=== PATIENT | female | born 1950 | race Caucasian/White ===

== ENCOUNTER 2019-06-21 08:54 | Outpatient (CLI) | payer OTHER, SELFPAY ==
[2019-06-21 10:10] LABS: Hemoglobin A1C 6.7 % (<5.7); Potassium 4.1 mmol/L (3.4-5.0)
[2019-06-21 10:15] LABS: Alanine Aminotransferase 16 U/L (4-35); Albumin Level 4.2 g/dL (3.5-5.1); Alkaline Phosphatase 83 U/L (38-126); Aspartate Amino Transferase 21 U/L (14-36); Bilirubin,Total 0.2 mg/dL (0.2-1.3); Blood Urea Nitrogen 21 mg/dL (7-17); Calcium 8.7 mg/dL (8.4-10.2); Carbon Dioxide 24 mmol/L (22-30); Chloride 105 mmol/L (98-107); Estimated Glomerular Filt Rate > 60; Glucose 131 mg/dL (65-105); Sodium 138 mmol/L (137-145)
== END 2019-06-21 08:55 | disposition home or self-care (01) ==
PROVIDERS: PCP Family Medicine; Visit Provider Family Medicine
DX: E11.9 Type 2 diabetes mellitus without complications (principal); E78.5 Hyperlipidemia, unspecified
CPT/HCPCS: 36415; 80053; 83036

== ENCOUNTER 2019-07-07 14:41 | Outpatient (CLI) | payer OTHER, SELFPAY ==
[2019-07-07 15:16] LABS: Alanine Aminotransferase 19 U/L (4-35); Albumin Level 4.2 g/dL (3.5-5.1); Alkaline Phosphatase 69 U/L (38-126); Aspartate Amino Transferase 25 U/L (14-36); Bilirubin,Total 0.4 mg/dL (0.2-1.3); Blood Urea Nitrogen 17 mg/dL (7-17); Calcium 8.4 mg/dL (8.4-10.2); Carbon Dioxide 25 mmol/L (22-30); Chloride 103 mmol/L (98-107); Estimated Glomerular Filt Rate > 60; Glucose 145 mg/dL (65-105); Potassium 4.3 mmol/L (3.4-5.0); Sodium 137 mmol/L (137-145)
== END 2019-07-07 14:42 | disposition home or self-care (01) ==
PROVIDERS: PCP Family Medicine; Visit Provider Family Medicine
DX: B35.1 Tinea unguium (principal)
CPT/HCPCS: 36415; 80053

== ENCOUNTER 2019-11-24 10:20 | Outpatient (CLI) | payer OTHER, SELFPAY ==
[2019-11-24 10:44] LABS: Hematocrit 39.2 % (37.0-47.0); Hemoglobin 13.2 g/dL (12.0-15.0); Mean Corpuscular HGB Conc 33.7 g/dl (32-36); Mean Corpuscular Hemoglobin 29.9 pg (26-34); Mean Corpuscular Volume 88.7 fl (80-100); Mean Platelet Volume 10.7 fl (7.4-10.4); Platelet Count Result 222 k/mm3 (150-375); Red Blood Count 4.42 M/mm3 (4.2-5.4); Red Cell Distribution Width 12.3 % (11.5-14.5); White Blood Count 7.2 K/mm3 (4.5-10.0)
[2019-11-24 11:07] LABS: Alanine Aminotransferase 16 U/L (4-35); Albumin Level 4.3 g/dL (3.5-5.1); Alkaline Phosphatase 74 U/L (38-126); Anion Gap 10 mmol/L (8-16); Aspartate Amino Transferase 23 U/L (14-36); Bilirubin,Total 0.3 mg/dL (0.2-1.3); Blood Urea Nitrogen 18 mg/dL (7-17); Calcium 8.8 mg/dL (8.4-10.2); Carbon Dioxide 24 mmol/L (22-30); Chloride 105 mmol/L (98-107); Cholesterol 179 mg/dL (0-200); Estimated Glomerular Filt Rate 55; Glucose 129 mg/dL (65-105); HDL Direct 45 mg/dL; Potassium 4.5 mmol/L (3.4-5.0); Sodium 139 mmol/L (137-145); Triglycerides 158 mg/dL (<150)
[2019-11-24 11:18] LABS: LDL Cholesterol Direct 99 mg/dL
[2019-11-24 12:18] LABS: Hemoglobin A1C 6.2 % (<5.7)
[2019-11-24 12:49] LABS: Thyroid Stimulating Hormone Reflex 0.877 uIU/mL (0.465-4.68)
== END 2019-11-24 10:21 | disposition home or self-care (01) ==
LOC: ANHLAB 10:23
PROVIDERS: PCP Nurse Practitioner Family; Visit Provider Nurse Practitioner Family
DX: I10 Essential (primary) hypertension (principal); E78.5 Hyperlipidemia, unspecified; E11.9 Type 2 diabetes mellitus without complications
CPT/HCPCS: 36415; 80053; 80061; 83036; 84443; 85027

== ENCOUNTER 2019-12-26 08:58 | Outpatient (CLI) | payer OTHER, SELFPAY ==
--- NOTE | ~2019-12-26 | DEXA_ITS ---
Bone Density Report Name: Radha Norman Age: 69 Sex: Female Ethnicity: White Date of : 1950 Indication: postmenopausal; height loss; Referring Provider: Yasmin Dean Study: Bone densitometry was performed. Exam Date: December 26, 2019 Accession number: [id number] Bone Density: Region BMD T-score Z-score Classification AP Spine (L1, L2, L3) 1.075 0.5 2.6 Normal Femoral Neck (Left) 0.778 -0.6 1.2 Normal Total Hip (Left) 0.989 0.4 1.9 Normal Total Hip Bilateral Avg 0.983 0.4 1.9 Normal Femoral Neck (Right) 0.759 -0.8 1.0 Normal Total Hip (Right) 0.976 0.3 1.8 Normal World Health Organization criteria for BMD impression classify patients as: Normal (T-score at or above -1.0), Osteopenia (T-score between -1.0 and -2.5), or Osteoporosis (T-score at or below -2.5). 10-year Fracture Risk: FRAX not reported because: All T-scores for Spine Total, Hip Total, Femoral Neck at or above -1.0 Previous Exams: Region Exam Age BMD T-score BMD Change BMD Change Date g/cm2 vs Baseline vs Previous AP Spine(L1, L2, L3) 12/26/2019 69 1.075 0.5 0.030(2.9%)* 0.030(2.9%)* 06/03/2017 66 1.045 0.2 Total Hip(Left) 12/26/2019 69 0.989 0.4 -0.054(-5.2%)* -0.054(-5.2%)* 06/03/2017 66 1.043 0.8 Total Hip(Right) 12/26/2019 69 0.976 0.3 -0.036(-3.6%)* -0.036(-3.6%)* 06/03/2017 66 1.013 0.6 *Denotes significance at 95% confidence level, LSC for AP Spine = 0.022 g/cm2, LSC for Total Hip = 0.027 g/cm2 Clinical Information Provided by Patient: Patient maximum height was 67 Menopause Age: 53 Drinks caffeinated beverages Onset of menses at age 12 Number of children 3 Impression: The patient has normal bone mass. The BMD for the Total Hip(Left) decreased, changing by -5.2% since the last DXA exam. The BMD for the Total Hip(Right) decreased, changing by -3.6% since the last DXA exam. Discussion: BONE DENSITY IS ABOVE THE MINIMUM DESIRABLE LEVEL AT ALL SKELETAL SITES TESTED. This patient?s bone mineral density is above the minimum desirable level (T-score -1.0 or better) at all sites measured. The patient should follow a healthful lifestyle (good nutrition with adequate calcium and vitamin D, and appropriate weight-bearing exercise). Follow-Up: Consider repeating this study in 3 to 4 years to reassess this patient's status, or sooner if there is some new clinical indication. Reported by: [facility] on 12/26/2019 9:23:00 AM.
== END 2019-12-26 08:59 | disposition home or self-care (01) ==
LOC: ANHIMG 08:59
PROVIDERS: PCP Nurse Practitioner Family; Visit Provider Nurse Practitioner Family
DX: Z78.0 Asymptomatic menopausal state (principal)
CPT/HCPCS: 77080

== ENCOUNTER 2020-08-07 10:07 | Outpatient (CLI) | payer OTHER, SELFPAY ==
[2020-08-07 10:49] LABS: Hematocrit 38.2 % (37.0-47.0); Hemoglobin 12.7 g/dL (12.0-15.0); Mean Corpuscular HGB Conc 33.2 g/dl (32-36); Mean Corpuscular Hemoglobin 29.3 pg (26-34); Mean Platelet Volume 10.7 fl (7.4-10.4); Platelet Count Result 233 k/mm3 (150-375); Red Blood Count 4.34 M/mm3 (4.2-5.4); Red Cell Distribution Width 12.1 % (11.5-14.5); White Blood Count 7.5 K/mm3 (4.5-10.0)
[2020-08-07 10:59] LABS: Alanine Aminotransferase 15 U/L (4-35); Albumin Level 4.2 g/dL (3.5-5.1); Alkaline Phosphatase 81 U/L (38-126); Anion Gap 6 mmol/L (8-16); Aspartate Amino Transferase 21 U/L (14-36); Bilirubin,Total 0.2 mg/dL (0.2-1.3); Blood Urea Nitrogen 19 mg/dL (7-17); Calcium 9.1 mg/dL (8.4-10.2); Carbon Dioxide 26 mmol/L (22-30); Chloride 106 mmol/L (98-107); Cholesterol 189 mg/dL (0-200); Estimated Glomerular Filt Rate 55; Glucose 126 mg/dL (65-105); HDL Direct 51 mg/dL; Potassium 4.3 mmol/L (3.4-5.0); Sodium 138 mmol/L (137-145); Triglycerides 168 mg/dL (<150)
[2020-08-07 11:10] LABS: LDL Cholesterol Direct 104 mg/dL
== END 2020-08-07 10:08 | disposition home or self-care (01) ==
PROVIDERS: PCP Family Medicine; Visit Provider Nurse Practitioner Family
DX: E11.9 Type 2 diabetes mellitus without complications (principal); I10 Essential (primary) hypertension; E78.5 Hyperlipidemia, unspecified
CPT/HCPCS: 36415; 80053; 80061; 83036; 85027

== ENCOUNTER 2020-08-24 09:08 | Outpatient (CLI) | payer OTHER, SELFPAY ==
--- NOTE | ~2020-08-24 | MM_ITS ---
EXAMINATION: MM screening shayne BI w eddie HISTORY: Screening TECHNIQUE: Craniocaudal and mediolateral oblique 3-D tomosynthesis images were obtained and synthetic 2-D images were generated. CAD analysis was submitted and interpreted. COMPARISON: Comparison to multiple prior studies sequentially, with oldest reviewed study dated 04/22. BREAST PARENCHYMAL COMPOSITION: There are scattered areas of fibroglandular density. FINDINGS: There is no evidence of suspicious mass, calcification, or architectural distortion to sugg est malignancy in either breast. There has been no suspicious interval change. IMPRESSION: 1. No mammographic evidence of malignancy. 2. Recommend routine screening mammography in one year. BI-RADS Category 1: Negative Reviewed, dictated and finalized at location A.
== END 2020-08-24 09:09 | disposition home or self-care (01) ==
LOC: ANHIMG 09:09
PROVIDERS: PCP Family Medicine; Visit Provider Nurse Practitioner Family
DX: Z12.31 Encounter for screening mammogram for malignant neoplasm of breast (principal)
CPT/HCPCS: 77063; 77067

== ENCOUNTER 2020-09-06 14:05 | Outpatient (CLI) | payer OTHER, SELFPAY ==
--- NOTE | ~2020-09-06 | CT_ITS ---
EXAMINATION:CT lung screening DATE: 09/06/2020 14:42 INDICATION: Personal history of tobacco dependence. Smoker who quit 8 years ago with 51 pack year his tory. TECHNIQUE: Computed tomography (CT) of the chest was performed without intravenous contrast. Automate d exposure control and iterative reconstruction technique were employed. The dose-length product (DLP ) was 95.79 mGy-cm. COMPARISON: None. FINDINGS: There is mild emphysema. There is mild scarring at the lung apices. In the right lung lower lobe, there is mild peripheral atelectasis and scarring and honeycombing. There are a few scattered nodules in the lungs measuring up to 7 mm in superior segment right lower lobe. No pleural effusion. The heart size is normal. There are coronary artery calcifications. No pericardial effusion. There is mild thoracic spondylosis. IMPRESSION: 1. Lung-RADS category 3: Probably benign. Further evaluation is recommended with noncontrast low-dose chest CT in 6 months. Reviewed, dictated and finalized at location A. IMPRESSION: 1. Lung-RADS category 3: Probably benign. Further evaluation is recommended wit h noncontrast low-dose chest CT in 6 months.
== END 2020-09-06 14:06 | disposition home or self-care (01) ==
PROVIDERS: PCP Family Medicine; Visit Provider Family Medicine
DX: Z87.891 Personal history of nicotine dependence (principal)
CPT/HCPCS: 71271

== ENCOUNTER 2021-03-03 10:06 | Outpatient (CLI) | payer OTHER, SELFPAY ==
[2021-03-03 10:31] LABS: Basophils Absolute Auto 0.1 K/mm3 (0.0-0.1); Basophils Percent Auto 0.8 % (0.2-1.2); Eosinophils Absolute Auto 0.7 K/mm3 (0-0.3); Eosinophils Percent Auto 8.5 % (0-4.4); Hematocrit 39.7 % (37.0-47.0); Immature Granulocyte Absolute 0.03 K/mm3 (0.00-0.031); Immature Granulocyte Percent A 0.4 % (0-0.5); Lymphocytes Absolute Auto 2.52 K/mm3 (0.9-3.2); Lymphocytes Percent Auto 30.2 % (18.3-44.2); Mean Corpuscular HGB Conc 32.7 g/dl (32-36); Mean Corpuscular Volume 91.5 fl (80-100); Mean Platelet Volume 10.7 fl (7.4-10.4); Monocytes Absolute Auto 0.7 K/mm3 (0.1-0.6); Monocytes Percent Auto 8.9 % (2.6-8.5); Neutrophils Absolute Auto 4.3 K/mm3 (1.3-6.7); Neutrophils Percent Auto 51.2 % (45.5-73.1); Platelet Count Result 208 k/mm3 (150-375); Red Blood Count 4.34 M/mm3 (4.2-5.4); Red Cell Distribution Width 12.3 % (11.5-14.5); White Blood Count 8.4 K/mm3 (4.5-10.0)
[2021-03-03 10:38] LABS: Hemoglobin A1C 5.9 % (<5.7)
[2021-03-03 10:40] LABS: Alanine Aminotransferase 13 U/L (4-35); Albumin Level 4.2 g/dL (3.5-5.1); Alkaline Phosphatase 86 U/L (38-126); Anion Gap 6 mmol/L (8-16); Aspartate Amino Transferase 20 U/L (14-36); Bilirubin,Total 0.3 mg/dL (0.2-1.3); Blood Urea Nitrogen 20 mg/dL (7-17); Carbon Dioxide 26 mmol/L (22-30); Chloride 103 mmol/L (98-107); Cholesterol 203 mg/dL (0-200); Estimated Glomerular Filt Rate > 60; Glucose 121 mg/dL (65-110); HDL Direct 50 mg/dL; Potassium 4.4 mmol/L (3.4-5.0); Sodium 135 mmol/L (137-145); Triglycerides 156 mg/dL (<150)
[2021-03-03 10:50] LABS: LDL Cholesterol Direct 122 mg/dL
== END 2021-03-03 10:07 | disposition home or self-care (01) ==
LOC: ANHLAB 10:09
PROVIDERS: PCP Family Medicine; Visit Provider Nurse Practitioner Family
DX: E11.9 Type 2 diabetes mellitus without complications (principal); E78.5 Hyperlipidemia, unspecified; I10 Essential (primary) hypertension
CPT/HCPCS: 36415; 80053; 80061; 83036; 85025

== ENCOUNTER 2021-06-05 08:06 | Outpatient (CLI) | payer OTHER, SELFPAY ==
--- NOTE | ~2021-06-05 | CT_ITS ---
EXAMINATION: CT lung screening EXAM DATE: 06/05/2021 08:35 INDICATION: Z87.891 - Personal history of nicotine dependence. TECHNIQUE: Spiral low dose CT of the chest without contrast. Axial, coronal and sagittal images were reviewed. The dose-length product (DLP) for this examination was 101.10 mGy-cm. The exposure was t ailored according to patient size (auto mA exposure control), and iterative reconstruction (ASIR) was used as additional dose reduction technique. Comparison is made to prior examination from 09/06/2020. FINDINGS: Scattered regions of opacities consistent with postinfectious residua. These are unchanged compared to prior study. Previously reported 7 mm opacity demonstrated superior segment right lower lobe, unchanged. No new or suspicious pulmonary nodules. There is mild to moderate emphysema. Trache obronchial tree is patent. There is no mediastinal, hilar or axillary lymphadenopathy. There are no pleural or pericardial effusions. There is no pneumothorax. Heart normal in size. There is m ild to moderate coronary arterial calcification, arterial sclerosis. Upper abdomen is unremarkable. There is mild thoracic spondylosis without osteoblastic or osteolytic lesions identified. IMPRESSION: Lung-RADS category 2, benign appearance or behavior (<1% chance of malignancy); recommend continued LDCT screening in 1 year. Reviewed, dictated and finalized at location A. NARY DIRECTOR
== END 2021-06-05 08:07 | disposition home or self-care (01) ==
PROVIDERS: PCP Family Medicine; Visit Provider Nurse Practitioner Family
DX: Z12.2 Encounter for screening for malignant neoplasm of respiratory organs (principal); Z87.891 Personal history of nicotine dependence; R91.8 Other nonspecific abnormal finding of lung field
CPT/HCPCS: 71271

== ENCOUNTER 2021-09-01 10:25 | Outpatient (CLI) | payer OTHER, SELFPAY ==
[2021-09-01 11:15] LABS: Basophils Absolute Auto 0.1 K/mm3 (0.0-0.1); Eosinophils Absolute Auto 0.5 K/mm3 (0-0.3); Eosinophils Percent Auto 7.7 % (0-4.4); Hematocrit 39.7 % (37.0-47.0); Hemoglobin 12.8 g/dL (12.0-15.0); Immature Granulocyte Absolute 0.02 K/mm3 (0.00-0.031); Immature Granulocyte Percent A 0.3 % (0-0.5); Lymphocytes Absolute Auto 1.93 K/mm3 (0.9-3.2); Lymphocytes Percent Auto 27.5 % (18.3-44.2); Mean Corpuscular HGB Conc 32.2 g/dl (32-36); Mean Corpuscular Hemoglobin 28.9 pg (26-34); Mean Corpuscular Volume 89.6 fl (80-100); Mean Platelet Volume 11.1 fl (7.4-10.4); Monocytes Absolute Auto 0.7 K/mm3 (0.1-0.6); Monocytes Percent Auto 9.7 % (2.6-8.5); Neutrophils Absolute Auto 3.8 K/mm3 (1.3-6.7); Neutrophils Percent Auto 53.8 % (45.5-73.1); Platelet Count Result 217 k/mm3 (150-375); Red Blood Count 4.43 M/mm3 (4.2-5.4); Red Cell Distribution Width 12.3 % (11.5-14.5)
[2021-09-01 11:23] LABS: Alanine Aminotransferase 14 U/L (6-35); Albumin Level 4.3 g/dL (3.5-5.1); Alkaline Phosphatase 97 U/L (38-126); Anion Gap 8 mmol/L (8-16); Aspartate Amino Transferase 19 U/L (14-36); Bilirubin,Total 0.3 mg/dL (0.2-1.3); Blood Urea Nitrogen 16 mg/dL (7-17); Calcium 8.6 mg/dL (8.4-10.2); Carbon Dioxide 25 mmol/L (22-30); Chloride 106 mmol/L (98-107); Cholesterol 201 mg/dL (0-200); Estimated Glomerular Filt Rate > 60; Glucose 127 mg/dL (65-110); HDL Direct 46 mg/dL; Potassium 4.4 mmol/L (3.4-5.0); Sodium 139 mmol/L (137-145); Triglycerides 174 mg/dL (<150)
[2021-09-01 11:34] LABS: LDL Cholesterol Direct 108 mg/dL
[2021-09-01 11:43] LABS: Hemoglobin A1C 6.3 % (<5.7)
== END 2021-09-01 10:26 | disposition home or self-care (01) ==
PROVIDERS: PCP Family Medicine; Visit Provider Nurse Practitioner Family
DX: E78.5 Hyperlipidemia, unspecified (principal); E11.9 Type 2 diabetes mellitus without complications; I10 Essential (primary) hypertension
CPT/HCPCS: 36415; 80053; 80061; 83036; 85025

== ENCOUNTER 2022-04-13 10:19 | Outpatient (CLI) | payer OTHER, SELFPAY ==
[2022-04-13 11:00] LABS: Basophils Percent Auto 0.5 % (0.2-1.2); Eosinophils Absolute Auto 0.3 K/mm3 (0-0.3); Eosinophils Percent Auto 4.4 % (0-4.4); Hematocrit 39.5 % (37.0-47.0); Hemoglobin 12.9 g/dL (12.0-15.0); Immature Granulocyte Absolute 0.03 K/mm3 (0.00-0.031); Immature Granulocyte Percent A 0.4 % (0-0.5); Lymphocytes Absolute Auto 1.99 K/mm3 (0.9-3.2); Lymphocytes Percent Auto 25.5 % (18.3-44.2); Mean Corpuscular HGB Conc 32.7 g/dl (32-36); Mean Corpuscular Hemoglobin 29.8 pg (26-34); Mean Corpuscular Volume 91.2 fl (80-100); Mean Platelet Volume 10.8 fl (7.4-10.4); Monocytes Absolute Auto 0.7 K/mm3 (0.1-0.6); Monocytes Percent Auto 9.2 % (2.6-8.5); Neutrophils Absolute Auto 4.7 K/mm3 (1.3-6.7); Platelet Count Result 227 k/mm3 (150-375); Red Blood Count 4.33 M/mm3 (4.2-5.4); Red Cell Distribution Width 12.7 % (11.5-14.5); White Blood Count 7.8 K/mm3 (4.5-10.0)
[2022-04-13 11:13] LABS: Alanine Aminotransferase 15 U/L (6-35); Albumin Level 4.1 g/dL (3.5-5.1); Alkaline Phosphatase 82 U/L (38-126); Anion Gap 4 mmol/L (8-16); Aspartate Amino Transferase 18 U/L (14-36); Bilirubin,Total 0.2 mg/dL (0.2-1.3); Blood Urea Nitrogen 20 mg/dL (7-17); Calcium 8.7 mg/dL (8.4-10.2); Carbon Dioxide 27 mmol/L (22-30); Chloride 104 mmol/L (98-107); Cholesterol 195 mg/dL (0-200); Estimated Glomerular Filt Rate > 60; Glucose 134 mg/dL (65-110); HDL Direct 51 mg/dL; Potassium 4.1 mmol/L (3.4-5.0); Sodium 135 mmol/L (137-145); Triglycerides 163 mg/dL (<150)
[2022-04-13 11:24] LABS: LDL Cholesterol Direct 103 mg/dL
[2022-04-13 11:28] LABS: Creatinine Urine 129.2 mg/dL
[2022-04-13 11:33] LABS: MALB Creatinine Ratio 42.3 mg/g (0-30); Microalbumin Urine Random 54.7 mg/L (0-16.7)
[2022-04-13 11:33] LABS: Hemoglobin A1C 6.5 % (<5.7)
[2022-04-13 12:08] LABS: Vitamin D 25 Hydroxy 18.1 ng/mL
== END 2022-04-13 10:20 | disposition home or self-care (01) ==
PROVIDERS: PCP Family Medicine; Visit Provider Nurse Practitioner Family
DX: I10 Essential (primary) hypertension (principal); E11.9 Type 2 diabetes mellitus without complications; E78.5 Hyperlipidemia, unspecified; E55.9 Vitamin D deficiency, unspecified; Z78.0 Asymptomatic menopausal state
CPT/HCPCS: 36415; 80053; 80061; 82043; 82306; 83036; 84443; 85025

== ENCOUNTER 2022-05-01 01:54 | Day surgery (SDC) | payer OTHER, SELFPAY ==
[2022-04-15 13:33] VITALS: BMI 29.9
--- NOTE | 2022-04-30 09:55 | WPDANESEPPF ---
Anes - Initial Pre Proc Eval Procedure: Operation Date: 05/01/22 10:45 Proposed Procedures p Screening Colonoscopy - Chema Mohan MD Date/Time: 04/30/22 09:55 Surgeon: Chema Mohan MD Pre Op Diagnosis: neoplasm screening Patient Data Age: 71 Gender: F Height: 1.68 m Weight: 84 kg Allergies Allergy/AdvReac Type Severity Reaction Status Date / Time codeine Allergy Unknown Unknown Verified 05/05/22 15:22 shellfish derived Allergy Hives Verified 05/05/22 15:22 Home Medications Medication Instructions Recorded Confirmed Type aspirin 81 mg chewable tablet 81 mg PO DAILY 05/22/19 05/01/22 History ertlvkberkbv-Fb-fpcb-minerals 1 tablet PO DAILY 05/22/19 05/01/22 History nitroglycerin 0.4 mg sublingual 0.4 mg sublingual Q5M PRN Chest 05/22/19 04/15/22 History tablet Pain blood-glucose meter (Blood Glucose #1 ea 02/20/20 05/01/22 Rx Monitoring kit) blood sugar diagnostic (Contour See Rx Instructions .Route 05/28/20 05/01/22 Rx Next Test Strips) .COMPLEX #100 strips omega-3 417 mg-dha 120 mg-epa-276 2 cap PO DAILY 08/13/20 05/01/22 History mg-fish oil 600 mg-tumeric capsule vitamins A,C,M-ijab-hexjjm 2,148 1 tablet PO BID 03/04/21 05/01/22 History mcg-113 mg-45 mg-17.4 mg tablet (PreserVision AREDS) diclofenac sodium 1 % topical gel 2 g topical QID #100 grams 09/02/21 05/01/22 Rx triamcinolone acetonide 0.1 % 1 applic topical BID #30 grams 09/02/21 05/01/22 Rx topical cream lisinopril 10 mg tablet See Rx Instructions .Route 09/04/21 05/01/22 Rx .COMPLEX #180 tabs metformin 500 mg tablet 500 mg PO BID #180 tabs 12/15/21 05/01/22 Rx montelukast 10 mg tablet 10 mg PO DAILY #90 tabs 02/20/22 05/01/22 Rx (Singulair) amlodipine 5 mg tablet 5 mg PO DAILY 05/05/22 05/05/22 History carvedilol 12.5 mg tablet 12.5 mg PO BID #180 tabs 05/05/22 Rx methylprednisolone 4 mg tablets in See Rx Instructions PO PER PKG DIR 05/05/22 05/05/22 Rx a dose pack (Medrol (Taj)) #21 ea pravastatin 40 mg tablet 40 mg PO DAILY 05/05/22 05/05/22 History tramadol 50 mg tablet 50 mg PO Q6H PRN pain #10 tabs 05/05/22 05/05/22 Rx Patient hx anesthesia problems: none Family hx anesthesia problems: none Results Review: All pre-operative results and documents have been reviewed as part of the pre-operative evaluation. [facility] Past Medical History Medical History Arthralgia of both knees Atopic dermatitis Bilateral tinnitus Emphysema lung Former cigarette smoker Heart disease HLD (hyperlipidemia) Hypertension Left bundle branch block Macular degeneration Surgical History Surgical History History of tubal ligation Family History Family History Sibling Hypertension Family history of malignant neoplasm Grandparent Cerebrovascular accident Acute myocardial infarction Family history of malignant neoplasm Mother Cerebrovascular accident Father Acute myocardial infarction Social History Social History Smoking packs per day: 1 Smoking cigarettes per day: 20.0 Years smoked: 50 Smoking pack-years: 50.00 Smoking status: Former smoker Tobacco type: cigarettes Second hand tobacco smoke exposure: No Smoking end date: 01/30/13 Alcohol intake: current Drinks per week: 3 Alcohol use details: beer Substance use: never Substance use type: does not use Lack of Transportation: No Lack of Food: Never True Current Housing: I Have Housing Concerned About Future Housing: No Difficulty Paying Gas/Electric Bills: No Difficulty Paying for Meds: No Currently Unemployed: No Education: High School Diploma/GED Difficulty w/ Childcare or Family Care: No Living arrangements: with family Additional living arrangements comments: Occupation/[employer]
--- NOTE | 2022-04-30 15:19 | PM.HPGS ---
History of Present Illness History of Present Illness Consent: Risks, benefits, and alternatives have been discussed and questions answered. Patient agrees to proceed with procedure. Chief complaint: neoplasm screening Narrative: Radha Norman is a 71 year old female referred for colon cancer screening. Review of Systems Review of Systems: All systems reviewed & are unremarkable except as noted in HPI and below PMFSH Past Medical History Medical History Arthralgia of both knees Atopic dermatitis Bilateral tinnitus Emphysema lung Former cigarette smoker Heart disease HLD (hyperlipidemia) Hypertension Left bundle branch block Macular degeneration Surgical History Surgical History History of tubal ligation Family History Family History Sibling Hypertension Family history of malignant neoplasm Grandparent Cerebrovascular accident Acute myocardial infarction Family history of malignant neoplasm Mother Cerebrovascular accident Father Acute myocardial infarction Social History Social History Smoking packs per day: 1 Smoking cigarettes per day: 20.0 Years smoked: 50 Smoking pack-years: 50.00 Smoking status: Former smoker Tobacco type: cigarettes Second hand tobacco smoke exposure: No Smoking end date: 01/30/13 Alcohol intake: current Drinks per week: 3 Alcohol use details: beer Substance use: never Substance use type: does not use Lack of Transportation: No Lack of Food: Never True Current Housing: I Have Housing Concerned About Future Housing: No Difficulty Paying Gas/Electric Bills: No Difficulty Paying for Meds: No Currently Unemployed: No Education: High School Diploma/GED Difficulty w/ Childcare or Family Care: No Living arrangements: with family Additional living arrangements comments: Occupation/Education: retired Gender identity (if verbalized by the patient): Female Sexual Orientation (if Verbalized by the Patient): Straight or Heterosexual Spiritual care concerns: No Agree to blood products: Yes Meds Home Medications and Allergies Home Medications Medication Instructions Recorded Confirmed Type aspirin 81 mg chewable tablet 81 mg PO DAILY 05/22/19 05/01/22 History ihzquqyvqrop-Id-kvep-minerals 1 tablet PO DAILY 05/22/19 05/01/22 History nitroglycerin 0.4 mg sublingual 0.4 mg sublingual Q5M PRN Chest 05/22/19 04/15/22 History tablet Pain blood-glucose meter (Blood Glucose #1 ea 02/20/20 05/01/22 Rx Monitoring kit) blood sugar diagnostic (Contour See Rx Instructions .Route 05/28/20 05/01/22 Rx Next Test Strips) .COMPLEX #100 strips omega-3 417 mg-dha 120 mg-epa-276 2 cap PO DAILY 08/13/20 05/01/22 History mg-fish oil 600 mg-tumeric capsule vitamins A,C,J-otlu-zyiwdg 2,148 1 tablet PO BID 03/04/21 05/01/22 History mcg-113 mg-45 mg-17.4 mg tablet (PreserVision AREDS) diclofenac sodium 1 % topical gel 2 g topical QID #100 grams 09/02/21 05/01/22 Rx triamcinolone acetonide 0.1 % 1 applic topical BID #30 grams 09/02/21 05/01/22 Rx topical cream lisinopril 10 mg tablet See Rx Instructions .Route 09/04/21 05/01/22 Rx .COMPLEX #180 tabs carvedilol 12.5 mg tablet 12.5 mg PO BID #180 tabs 11/11/21 05/01/22 Rx metformin 500 mg tablet 500 mg PO BID #180 tabs 12/15/21 05/01/22 Rx amlodipine 5 mg tablet See Rx Instructions .Route 12/21/21 05/01/22 Rx .COMPLEX #90 tabs pravastatin 40 mg tablet See Rx Instructions .Route 12/21/21 05/01/22 Rx .COMPLEX #90 tabs montelukast 10 mg tablet 10 mg PO DAILY #90 tabs 02/20/22 05/01/22 Rx (Singulair) Allergies Allergy/AdvReac Type Severity Reaction Status Date / Time codeine Allergy Unknown Unknown Verified 05/01/22 09:50 shellfish derived Al
[2022-05-01 09:51] VITALS: BP 166/77; PULSE 73; RESP 20; TEMP 35.6; O2SAT 97; BMI 29.2
[2022-05-01] MEDS: LACTATED RINGERS 1,000 ML 150 ML IV CONT (10:11)
[2022-05-01 10:12] LABS: Glucose Point of Care 121 mg/dl (65-105)
[2022-05-01 10:54] VITALS: BP 132/54; PULSE 70; RESP 15; O2SAT 99
[2022-05-01 11:04] VITALS: BP 138/53; PULSE 72; RESP 18; O2SAT 100
[2022-05-01 11:14] VITALS: BP 140/55; PULSE 67; RESP 19; O2SAT 100
== END 2022-05-01 11:21 | disposition home or self-care (01) ==
PROVIDERS: PCP Family Medicine; Visit Provider Internal Medicine Gastroenterology
PROC: 0DJD8ZZ Inspection of Lower Intestinal Tract, Via Natural or Artificial Opening Endoscopic (ICD-10-PCS; CPT 45378; principal; 2022-05-01 10:45)
DX: Z12.11 Encounter for screening for malignant neoplasm of colon (principal); K62.1 Rectal polyp; I11.9 Hypertensive heart disease without heart failure; E78.5 Hyperlipidemia, unspecified; I44.7 Left bundle-branch block, unspecified; J43.9 Emphysema, unspecified; H35.30 Unspecified macular degeneration; Z79.82 Long term (current) use of aspirin; Z79.84 Long term (current) use of oral hypoglycemic drugs; Z87.891 Personal history of nicotine dependence
CPT/HCPCS: 45380; 82948; 88305; J2704; J7120

== ENCOUNTER 2022-05-14 14:34 | Outpatient (CLI) | payer OTHER, SELFPAY ==
--- NOTE | ~2022-05-14 | MM_ITS ---
EXAMINATION: MM screening shayne BI w eddie HISTORY: Screening mammogram TECHNIQUE: Craniocaudal and mediolateral oblique 3-D tomosynthesis images were obtained and synthetic 2-D images were generated. CAD analysis was submitted and interpreted. COMPARISON: 08/24/2020, 06/15/2018, 06/03/2017 lateral screening mammogram examinations BREAST PARENCHYMAL COMPOSITION: There are scattered areas of fibroglandular density. FINDINGS: There is no evidence of suspicious mass, calcification, or architectural distortion to sugg est malignancy in either breast. There has been no suspicious interval change. IMPRESSION: 1. No mammographic evidence of malignancy. 2. Recommend routine screening mammography in one year. BI-RADS Category 1: Negative Reviewed, dictated and finalized at location A. 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
--- NOTE | ~2022-05-14 | DEXA_ITS ---
Bone Density Report Name: SUNDAY MUÑOZ Age: 71 Sex: Female Ethnicity: White Date of : 1950 Indication: postmenopausal; screening for osteoporosis; height loss; asthma or emphysema; Referring Provider: CARI ARREDONDO Study: Bone densitometry was performed. Exam Date: May 14, 2022 Accession number: [id number] Bone Density: Region BMD T-score Z-score Classification AP Spine(L1-L4) 1.087 0.4 2.6 Normal Femoral Neck (Left) 0.774 -0.7 1.3 Normal Total Hip (Left) 0.961 0.2 1.8 Normal Femoral Neck (Right) 0.758 -0.8 1.1 Normal Total Hip (Right) 0.956 0.1 1.8 Normal Total Hip Mean 0.958 0.2 1.8 Normal World Health Organization criteria for BMD impression classify patients as: Normal (T-score at or above -1.0), Osteopenia (T-score between -1.0 and -2.5), or Osteoporosis (T-score at or below -2.5). 10-year Fracture Risk: FRAX not reported because: All T-scores for Spine Total, Hip Total, Femoral Neck at or above -1.0 Previous Exams: Region Exam Age BMD T-score BMD Change BMD Change Date g/cm2 vs Baseline vs Previous Total Hip(Left) 05/14/2022 71 0.961 0.2 -0.082 (-7.9%) -0.028 (-2.8%) 12/26/2019 69 0.989 0.4 -0.054 (-5.2%) -0.054 (-5.2%) 06/03/2017 66 1.043 0.8 Total Hip(Right) 05/14/2022 71 0.956 0.1 -0.057 (-5.6%) -0.020 (-2.1%) 12/26/2019 69 0.976 0.3 -0.036 (-3.6%) -0.036 (-3.6%) 06/03/2017 66 1.013 0.6 *Denotes significance at 95% confidence level, LSC for Total Hip = 0.027 g/cm2 Clinical Information Provided by Patient: Has used the following medications: Vitamin D, Calcium Has the following medical conditions: Asthma or Emphysema Patient maximum height was 66 Menopause Age: 53 No regular weight bearing exercise Drinks caffeinated beverages Onset of menses at age 12 Number of children 3 Impression: The patient has normal bone mass. The BMD for the Total Hip(Left) decreased, changing by -2.8% since the last DXA exam. Discussion: BONE DENSITY IS ABOVE THE MINIMUM DESIRABLE LEVEL AT ALL SKELETAL SITES TESTED. This patient?s bone mineral density is above the minimum desirable level (T-score -1.0 or better) at all sites measured. The patient should follow a healthful lifestyle (good nutrition with adequate calcium and vitamin D, and appropriate weight-bearing exercise). Follow-Up: Consider repeating this study in 3 to 4 years to reassess this patient's status, or sooner if there is some new clinical indication.
== END 2022-05-14 14:35 | disposition home or self-care (01) ==
PROVIDERS: PCP Family Medicine; Visit Provider Nurse Practitioner Family
DX: Z12.31 Encounter for screening mammogram for malignant neoplasm of breast (principal); Z78.0 Asymptomatic menopausal state
CPT/HCPCS: 77063; 77067; 77080

== ENCOUNTER 2022-09-17 09:58 | Outpatient (CLI) | payer OTHER, SELFPAY ==
[2022-09-17 10:20] LABS: Basophils Absolute Auto 0.1 K/mm3 (0.0-0.1); Basophils Percent Auto 0.8 % (0.2-1.2); Eosinophils Absolute Auto 0.5 K/mm3 (0-0.3); Eosinophils Percent Auto 6.5 % (0-4.4); Hematocrit 39.3 % (37.0-47.0); Hemoglobin 12.7 g/dL (12.0-15.0); Immature Granulocyte Absolute 0.02 K/mm3 (0.00-0.031); Immature Granulocyte Percent A 0.3 % (0-0.5); Lymphocytes Absolute Auto 2.67 K/mm3 (0.9-3.2); Lymphocytes Percent Auto 37.1 % (18.3-44.2); Mean Corpuscular HGB Conc 32.3 g/dl (32-36); Mean Corpuscular Hemoglobin 29.3 pg (26-34); Mean Corpuscular Volume 90.8 fl (80-100); Mean Platelet Volume 10.2 fl (7.4-10.4); Monocytes Absolute Auto 0.6 K/mm3 (0.1-0.6); Monocytes Percent Auto 8.5 % (2.6-8.5); Neutrophils Absolute Auto 3.4 K/mm3 (1.3-6.7); Neutrophils Percent Auto 46.8 % (45.5-73.1); Platelet Count Result 221 k/mm3 (150-375); Red Blood Count 4.33 M/mm3 (4.2-5.4); Red Cell Distribution Width 12.5 % (11.5-14.5); White Blood Count 7.2 K/mm3 (4.5-10.0)
[2022-09-17 12:41] LABS: Alanine Aminotransferase 19 U/L (6-35); Albumin Level 4.3 g/dL (3.5-5.1); Alkaline Phosphatase 81 U/L (38-126); Anion Gap 8 mmol/L (8-16); Aspartate Amino Transferase 22 U/L (14-36); Bilirubin,Total 0.3 mg/dL (0.2-1.3); Blood Urea Nitrogen 15 mg/dL (7-17); Calcium 8.5 mg/dL (8.4-10.2); Carbon Dioxide 26 mmol/L (22-30); Chloride 105 mmol/L (98-107); Cholesterol 196 mg/dL (0-200); Estimated Glomerular Filt Rate > 60; Glucose 113 mg/dL (65-110); HDL Direct 43 mg/dL; Potassium 4.2 mmol/L (3.4-5.0); Sodium 139 mmol/L (137-145); Triglycerides 281 mg/dL (<150)
[2022-09-17 12:52] LABS: LDL Cholesterol Direct 106 mg/dL
[2022-09-17 12:54] LABS: Hemoglobin A1C 6.1 % (<5.7)
[2022-09-17 12:59] LABS: Vitamin D 25 Hydroxy 23.2 ng/mL
== END 2022-09-17 09:59 | disposition home or self-care (01) ==
LOC: ANHLAB 10:00
PROVIDERS: PCP Family Medicine; Referring Provider Podiatrist Foot & Ankle Surgery; Visit Provider Nurse Practitioner Family
DX: I10 Essential (primary) hypertension (principal); E11.59 Type 2 diabetes mellitus with other circulatory complications; E55.9 Vitamin D deficiency, unspecified; Z13.29 Encounter for screening for other suspected endocrine disorder; Z13.220 Encounter for screening for lipoid disorders; B35.1 Tinea unguium
CPT/HCPCS: 36415; 80053; 80061; 82306; 83036; 84443; 85025

== ENCOUNTER 2022-11-20 17:14 | Emergency (ER) | payer OTHER, SELFPAY ==
[2022-11-20 17:24] VITALS: BP 155/75; PULSE 84; RESP 16; TEMP 37.2; O2SAT 99
--- NOTE | 2022-11-20 17:45 | ED.GENADULT ---
HPI - General Adult General Chief complaint: Wound/Laceration Stated complaint: Left Toe Nails Pain Time Seen by Provider: 11/20/22 17:40 Source: patient, RN notes reviewed and old records reviewed Mode of arrival: ambulatory Limitations: no limitations History of Present Illness HPI narrative: 72-year-old female who presents to [facility] with complaints redness and some swelling to the nail bed of the left great toe with concern for infection. Patient states she had the left great toe nail and also the 2nd toenail removed due to ingrown and fungus on the nails on with increased redness and soreness with swelling at base on nail bed left great toe noted today. Patient reports that she has been taking amoxicillin for dental infection since Wednesday. and patient states that she is diabetic. MD complaint: concern for infection left great toe nail bed Onset (ago): day(s) (1) Location: lower extremity (left great toe nail base) Severity scale (1-10): 2 Quality: other (soreness) Exacerbating factors: other (ambulation) Treatments prior to arrival: other (Tylenol and on Amoxicillin for dental infection) Related Data Home Medications Medication Instructions Recorded Confirmed aspirin 81 mg chewable tablet 81 mg PO DAILY 05/22/19 09/25/22 uyyzepkbfkih-My-yvob-minerals 1 tablet PO DAILY 05/22/19 09/25/22 vitamins A,C,F-jaba-xcsfre 2,148 1 tablet PO BID 03/04/21 09/25/22 mcg-113 mg-45 mg-17.4 mg tablet (PreserVision AREDS) lisinopril 10 mg tablet 10 mg PO BID 05/28/22 09/25/22 omega 5-adf-ajo-fish oil 1,000 mg 2 cap PO BID 09/25/22 09/25/22 (120 mg-180 mg) capsule (Fish Oil) amoxicillin 500 mg capsule mg 11/20/22 nitroglycerin 11/20/22 Allergies Allergy/AdvReac Type Severity Reaction Status Date / Time codeine Allergy Unknown Anxiety Verified 11/20/22 17:41 shellfish derived Allergy Hives Verified 09/03/22 12:42 Review of Systems Review of Systems: CONSTITUTIONAL: Denies fever, chills, or sweats. CARDIOVASCULAR: Denies chest pain, palpitations, or edema. RESPIRATORY: Denies cough or dyspnea. GASTROINTESTINAL: Denies abdominal pain, nausea, vomiting SKIN: Reports redness and swelling to left great toe at nail bed Denies purulent drainage, vesicles, bullae, numbness, pain beyond proportion MUSCULOSKELETAL: Denies myalgia. NEUROLOGIC: Denies headache, numbness. All systems reviewed & are unremarkable except as noted in HPI and below PMFSH Past Medical History Medical History Arthralgia of both knees Arthritis of right knee Atopic dermatitis Bilateral tinnitus Emphysema lung Former cigarette smoker Heart disease HLD (hyperlipidemia) Hypertension Left bundle branch block Macular degeneration Surgical History Surgical History History of tubal ligation Family History Family History Sibling Hypertension Family history of malignant neoplasm Grandparent Cerebrovascular accident Acute myocardial infarction Family history of malignant neoplasm Mother Cerebrovascular accident Father Acute myocardial infarction Social History Social History Smoking packs per day: 1 Smoking cigarettes per day: 20.0 Years smoked: 50 Smoking pack-years: 50.00 Smoking status: Former smoker Tobacco type: cigarettes Second hand tobacco smoke exposure: No Smoking end date: 01/30/13 Alcohol intake: current Drinks per week: 3 Alcohol use details: beer Substance use: never Substance use type: does not use Lack of Transportation: No Lack of Food: Never True Current Housing: I Have Housing Concerned About Future Housing: No Difficulty Paying Gas/Electric Bills: No Difficulty Paying for Meds: No Currently Unemployed: No Education: High School Diploma/GED
== END 2022-11-20 18:00 | disposition home or self-care (01) ==
PROVIDERS: Emergency Provider Registered Nurse; PCP Family Medicine
DX: L03.032 Cellulitis of left toe (principal); Z87.891 Personal history of nicotine dependence; M17.11 Unilateral primary osteoarthritis, right knee; E78.5 Hyperlipidemia, unspecified; I10 Essential (primary) hypertension; H35.30 Unspecified macular degeneration; J43.9 Emphysema, unspecified; Z79.82 Long term (current) use of aspirin; E11.9 Type 2 diabetes mellitus without complications
CPT/HCPCS: 99213; G0463

== ENCOUNTER 2023-03-01 12:55 | Outpatient (CLI) | payer OTHER, SELFPAY ==
--- NOTE | ~2023-03-01 | US_ITS ---
EXAMINATION: US soft tissue head and neck DATE: 03/01/2023 13:30 INDICATION: Nontender localized swelling, mass or lump at the left base of the neck TECHNIQUE: Multiple grayscale and Doppler ultrasound images of the region of concern at the left base of the neck were obtained. COMPARISON: None FINDINGS/IMPRESSION: No abnormal masses, fluid collections or other correlate identified for the reported palpable abnorma lity at the region of concern. Reviewed, dictated and finalized at location A. 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
== END 2023-03-01 12:56 | disposition home or self-care (01) ==
PROVIDERS: PCP Family Medicine; Visit Provider Nurse Practitioner Family
DX: R22.9 Localized swelling, mass and lump, unspecified (principal)
CPT/HCPCS: 76536

== ENCOUNTER 2023-06-15 14:22 | Outpatient (CLI) | payer OTHER, SELFPAY ==
--- NOTE | ~2023-06-15 | XR_ITS ---
XR knee RT min 4V DATE: 06/15/2023 14:44 INDICATION: Right knee primary osteoarthritis TECHNIQUE: [place] and standing AP, PA and lateral views COMPARISON: 06/03/2022 right knee FINDINGS: There is severe loss of medial joint space height with [id number]. There is mild to moder ate periarticular spurring at the medial compartment as well. There is mild periarticular spurring at the patellofemoral compartment. Mild superior pole patellar enthesopathy at the quadriceps tendon insertion. Mild suprapatellar knee joint effusion is suggested. No fracture or dislocation, periosteal reaction or bone destruction is detected. IMPRESSION: Osteoarthritis involving particularly severely the medial compartment Reviewed, dictated and finalized at location L. IMPRESSION: Osteoarthritis involving particularly severely the medial compartme nt
== END 2023-06-15 14:23 | disposition home or self-care (01) ==
PROVIDERS: PCP Family Medicine; Visit Provider Orthopaedic Surgery
DX: M17.11 Unilateral primary osteoarthritis, right knee (principal)
CPT/HCPCS: 73564

== ENCOUNTER 2023-08-06 11:00 | Outpatient (RCR) | payer OTHER, SELFPAY ==
--- NOTE | 2023-07-19 13:25 | OPREHPOC ---
Outpatient Therapy Plan of Care This is a Multidisciplinary Plan of Care that may contain components documented by all disciplines (PT, OT, and ST.) PT Problem 1 PT Problem #1 Knowledge Deficit PT Goal 1 Goal *indep with HEP * pt voice understanding of preop TKR education Target Visit 5 PT Problem 2 PT Problem #2 Pain PT Goal 1 Goal * monitor pain as increase strengthening activities R LE Target Visit 5 PT Problem 3 PT Problem #3 Impaired Strength PT Goal 1 Goal increase strength of R LE, to improve mobility and prepare for TKR: 1* mat strengthening exercises with 3# ankle wt x 15 reps 2* single leg standing x 10 seconds with good stability Target Visit 5
--- NOTE | 2023-07-19 13:26 | PTOPEVAL1 ---
Assessment and note entered by Carissa Agarwal, PT Evaluation Information Assessment Status Evaluation Diagnosis R knee OA-- to have TKR in the future Onset Dec 2022 Subjective Information gradual increase in knee pain from the arthritis; do not use cane or walker; date is not yet set for her TKR; basic education and discussion about TKR, post op PT, walker use and answered her questions; Activity: retired, active, do all home and self care tasks; does yard work; does not do any fitness exercises at home; does not have any exercise equipment at home; Reported Pain Level Pain Score Self Report Additional Pain Score Comments pain range in the past week: 0-3/10; increase pain: up/walking/activity 2-3 hours; decrease pain: sit/rest, take tylenol arthritis 2x/ day; prop up leg in recliner; have not used heat/ice on knee; sleeping is OK; Assessment PT Clinical Summary Radha has the diagnosis of R knee pain/OA. She is planning to have a TKR, date is not yet set. She is active, doing all home and self care tasks, but has pain with standing/walking/stairs. LE functional scale self rating of 19% limitation in activity level. With the evaluation: she has good ROM of R hip and knee, without pain; 2 minute walking test distance of 525', without pain increase; 8 steps with one hand railing and increase pain; decreased strength & control of R hip and knee with mat exercises and single leg standing. Skilled PT services are indicated for therapeutic exercises to increase R hip and knee strength and further education to progress HEP and to prepare pt for TKR surgery. Use of modalities PRN for pain as needed. Plan of Care Interventions Electrical Stimulation,Hot Pack/Cold Pack,Manual Therapy,Neuro Re-education,Patient Education,Therapeutic Activities,Therapeutic Exercise,Other Other Interventions taping PT Services Indicated Yes Treatment Frequency and 1-2x/wk for 5 total visits Duration These treatments will address the objective and functional deficits as defined above. Th
--- NOTE | 2023-08-06 11:37 | PTOPDC ---
Assessment and note entered by Carissa Agarwal, PT Discharge Information Assessment Status Discharge Diagnosis R knee OA-- to have TKR in the future Onset Dec 2022 Subjective Information knee is better now that the weather is cleared up and stop raining; use the cane when knee hurts more and it helped; Reported Pain Level Pain Score Self Report Additional Pain Score Comments pain range in the past week 2-10/10; increase pain this week due to rainy, bad weather Assessment PT Clinical Summary Radha has received 5 PT sessions. Compared to the initial evaluation: pain rating has increased from 3 to 10/10 at worst--due to weather and raining; increase strength of R hip and knee with mat exercises and single leg standing tolerance from 6 to 12 seconds; education completed for HEP and education about TKR. The goals were partially met. Discharge PT services. She is to continue with her HEP. Plan of Care PT Services Indicated No
== END 2023-08-06 13:14 | disposition home or self-care (01) ==
LOC: ANHPT 11:00
PROVIDERS: PCP Family Medicine; Visit Provider Orthopaedic Surgery
DX: M17.11 Unilateral primary osteoarthritis, right knee (principal)
CPT/HCPCS: 97110; 97161; 97530

== ENCOUNTER 2023-10-08 10:29 | Outpatient (CLI) | payer OTHER, SELFPAY ==
[2023-10-08 10:57] LABS: Hematocrit 37.9 % (37.0-47.0); Hemoglobin 12.5 g/dL (12.0-15.0); Mean Corpuscular Hemoglobin 30.2 pg (26-34); Mean Corpuscular Volume 91.5 fl (80-100); Platelet Count Result 218 k/mm3 (150-375); Red Blood Count 4.14 M/mm3 (4.2-5.4); Red Cell Distribution Width 12.3 % (11.5-14.5); White Blood Count 6.4 K/mm3 (4.5-10.0)
[2023-10-08 11:08] LABS: Hemoglobin A1C 6.1 % (<5.7)
[2023-10-08 11:18] LABS: Alanine Aminotransferase 15 U/L (6-35); Albumin Level 4.3 g/dL (3.5-5.1); Alkaline Phosphatase 79 U/L (38-126); Anion Gap 11 mmol/L (4-12); Aspartate Amino Transferase 21 U/L (14-36); Bilirubin,Total 0.4 mg/dL (0.2-1.3); Blood Urea Nitrogen 17 mg/dL (7-17); Carbon Dioxide 25 mmol/L (22-30); Chloride 104 mmol/L (98-107); Cholesterol 202 mg/dL (0-200); Estimated Glomerular Filt Rate > 60; Glucose 116 mg/dL (65-110); HDL Direct 46 mg/dL; Potassium 4.3 mmol/L (3.4-5.0); Sodium 140 mmol/L (137-145); Triglycerides 259 mg/dL (<150)
[2023-10-08 11:28] LABS: LDL Cholesterol Direct 122 mg/dL
[2023-10-08 11:55] LABS: Creatinine Urine 104.6 mg/dL
[2023-10-08 11:57] LABS: MALB Creatinine Ratio 20.1 mg/g (0-30)
== END 2023-10-08 10:30 | disposition home or self-care (01) ==
PROVIDERS: PCP Family Medicine; Visit Provider Nurse Practitioner
DX: E11.59 Type 2 diabetes mellitus with other circulatory complications (principal); I10 Essential (primary) hypertension; Z87.891 Personal history of nicotine dependence
CPT/HCPCS: 36415; 80053; 80061; 82043; 83036; 84443; 85027

== ENCOUNTER 2023-10-20 07:49 | Outpatient (CLI) | payer OTHER, SELFPAY ==
--- NOTE | ~2023-10-20 | NM_ITS ---
EXAMINATION: NM shanita stress w perfusion DATE: 10/20/2023 16:27 CDT INDICATION: Preprocedural cardiovascular exam TECHNIQUE: Rest images were obtained following intravenous administration of 10.5 mCi Tc99m tetrofosm in (Myoview). The patient was infused intravenously with Lexiscan (regadenoson). Then, 34.2 mCi Tc99m tetrofosmin (Myoview) was administered intravenously, and stress images were obtained. Data was charity nstructed into short axis and horizontal and vertical long axis SPECT images. Gated SPECT images were also obtained. COMPARISON: None. FINDINGS: There is no definite reversible or fixed perfusion abnormality to suggest ischemia or infar ction. There is no segmental wall motion abnormality. Left ventricular ejection fraction measures 7 3%. IMPRESSION: 1. No definite ischemia or infarct. 2. Normal left ventricular ejection fraction measuring 73%. Reviewed, dictated and finalized at location B.
--- NOTE | 2023-10-20 08:17 | EST_ITS ---
Patient Info Name: Radha Norman Age: 73 years : 1950 Gender: Female Ht: 66 in Wt: 174 lbs BSA: 1.94 m2 HR: 76 bpm BP: 144 / 61 mmHg Heart Rhythm: Sinus Rhythm Exam Date: 10/20/2023 8:39 AM Exam Location: Echo Lab Patient Status: Outpatient Admit Date: 10/20/2023 Staff Ordering Physician: Kingsley Guerra DO Attending Provider: Kingsley Guerra DO Exercise Technologist: Thao Toribio CT Exercise Physician: Kingsley Guerra DO Exam Type: CA stress shanita w NM Study Info Indications Z01.810 - Encounter for preprocedural cardiovascular examination A regadenoson stress test was performed. Summary 1. 1. Inconclusive lexiscan stress test for ischemic ST changes by ECG criteria due to baseline LBBB. 2. 2. Baseline hypertension. 3. 3. Nuclear scan to follow and will be reported separately. Please correlate with it. 4. 4. Patient informed of the above results. Protocol: Lexiscan Stress ECG Details Stage: REST Duration (min): 1 min : 8 sec HR (bpm): 76 SBP (mmHg): 144 DBP (mmHg): 61 Stage: REST Duration (min): 9 min : 16 sec HR (bpm): 73 SBP (mmHg): 144 DBP (mmHg): 61 Stage: STAGE 1 Duration (min): 0 min : 59 sec HR (bpm): 95 SBP (mmHg): 138 DBP (mmHg): 47 Stage: RECOVERY Duration (min): 1 min : 0 sec HR (bpm): 96 SBP (mmHg): 138 DBP (mmHg): 47 Stage: RECOVERY Duration (min): 2 min : 0 sec HR (bpm): 95 SBP (mmHg): 138 DBP (mmHg): 47 Stage: RECOVERY Duration (min): 3 min : 0 sec HR (bpm): 93 SBP (mmHg): 155 DBP (mmHg): 53 Stage: RECOVERY Duration (min): 3 min : 9 sec HR (bpm): 93 SBP (mmHg): 155 DBP (mmHg): 53 Rest HR: 73 bpm Peak HR: 99 bpm Rest Sys BP: 144 mmHg Peak Sys BP: 155 mmHg Max Pred HR: 146 bpm % Max Pred HR: 68 % Target HR: 124 bpm Max RPP: 15,345 bpm*mmHg Termination Reason: Completed protocol Cardiac Symptoms: Shortness of breath Total Time: 1 min : 0 sec Rest Reynolds BP: 61 mmHg Peak Reynolds BP: 53 mmHg Total Dose: 0.4 mg Resting ECG Sinus rhythm, LBBB. Stress ECG No ST changes. Arrhythmias None. Report Signatures
== END 2023-10-20 07:50 | disposition home or self-care (01) ==
PROVIDERS: PCP Family Medicine; Visit Provider Internal Medicine Cardiovascular Disease
DX: Z01.810 Encounter for preprocedural cardiovascular examination (principal)
CPT/HCPCS: 78452; 93017; A9502; J2785

== ENCOUNTER 2023-10-29 13:37 | Outpatient (CLI) | payer OTHER, SELFPAY ==
--- NOTE | ~2023-10-29 | CT_ITS ---
EXAMINATION: CT LE RT wo con DATE: 10/29/2023 14:06 INDICATION: Unilateral primary osteoarthritis. TECHNIQUE: Computed tomography (CT) of the right lower limb was performed without intravenous contras t. Automated exposure control and iterative reconstruction technique were employed. The dose-length p roduct was 1918.36 mGy-cm. COMPARISON: None FINDINGS: Right hip demonstrates moderate osteoarthritis. Osteitis pubis is noted. Right knee demonst rates severe osteoarthritis of the medial compartment, mild osteoarthritis of the lateral compartment , and moderate osteoarthritis of the patellofemoral compartment. There is a moderate-sized knee joint effusion. There is a moderate-sized Powers's cyst with loose body. IMPRESSION: 1. Severe right knee osteoarthritis. 2. Small right knee joint effusion. 3. Moderate-sized right Powers's cyst with loose body. 4. Moderate right hip osteoarthritis. Reviewed, dictated and finalized at location A.
== END 2023-10-29 13:38 | disposition home or self-care (01) ==
PROVIDERS: PCP Family Medicine; Visit Provider Orthopaedic Surgery
DX: M17.11 Unilateral primary osteoarthritis, right knee (principal); M25.461 Effusion, right knee; M71.21 Synovial cyst of popliteal space [Baker], right knee; M23.41 Loose body in knee, right knee; M16.11 Unilateral primary osteoarthritis, right hip
CPT/HCPCS: 73700

== ENCOUNTER 2023-12-15 09:42 | Outpatient (CLI) | payer OTHER, SELFPAY ==
[2023-12-15 10:59] LABS: Basophils Absolute Auto 0.1 K/mm3 (0.0-0.1); Basophils Percent Auto 0.6 % (0.2-1.2); Eosinophils Absolute Auto 0.4 K/mm3 (0-0.3); Eosinophils Percent Auto 4.6 % (0-4.4); Hemoglobin 12.6 g/dL (12.0-15.0); Immature Granulocyte Absolute 0.02 K/mm3 (0.00-0.031); Immature Granulocyte Percent A 0.2 % (0-0.5); Lymphocytes Absolute Auto 2.72 K/mm3 (0.9-3.2); Lymphocytes Percent Auto 33.5 % (18.3-44.2); Mean Corpuscular HGB Conc 31.5 g/dl (32-36); Mean Corpuscular Hemoglobin 29.4 pg (26-34); Mean Corpuscular Volume 93.5 fl (80-100); Mean Platelet Volume 9.7 fl (7.4-10.4); Monocytes Absolute Auto 0.8 K/mm3 (0.1-0.6); Monocytes Percent Auto 10.2 % (2.6-8.5); Neutrophils Absolute Auto 4.1 K/mm3 (1.3-6.7); Neutrophils Percent Auto 50.9 % (45.5-73.1); Platelet Count Result 244 k/mm3 (150-375); Red Blood Count 4.28 M/mm3 (4.2-5.4); Red Cell Distribution Width 12.5 % (11.5-14.5); White Blood Count 8.1 K/mm3 (4.5-10.0)
[2023-12-15 11:09] LABS: Urine Cotinine NEGATIVE
[2023-12-15 11:11] LABS: Albumin Level 4.7 g/dL (3.5-5.1)
[2023-12-15 11:13] LABS: Anion Gap 14 mmol/L (4-12); Blood Urea Nitrogen 18 mg/dL (7-17); Calcium 9.1 mg/dL (8.4-10.2); Carbon Dioxide 25 mmol/L (22-30); Chloride 97 mmol/L (98-107); Estimated Glomerular Filt Rate > 60; Glucose 118 mg/dL (65-110); Potassium 4.3 mmol/L (3.4-5.0); Sodium 136 mmol/L (137-145)
[2023-12-15 11:28] LABS: Hemoglobin A1C 6.3 % (<5.7)
[2023-12-15 12:07] LABS: MRSA (PCR) NOT DETECTED (NOT DETECTE)
== END 2023-12-15 09:43 | disposition home or self-care (01) ==
PROVIDERS: Anesthesiology; PCP Family Medicine; Visit Provider Orthopaedic Surgery
DX: M17.11 Unilateral primary osteoarthritis, right knee (principal); Z01.812 Encounter for preprocedural laboratory examination; I11.0 Hypertensive heart disease with heart failure; E78.5 Hyperlipidemia, unspecified
CPT/HCPCS: 36415; 80048; 80307; 82040; 83036; 85025; 87641

== ENCOUNTER 2024-01-11 00:29 | Day surgery (SDC) | payer OTHER, SELFPAY ==
[2023-12-15 08:57] VITALS: BP 151/61; PULSE 70; RESP 16; TEMP 36.6; BMI 28.2
--- NOTE | 2023-12-15 08:57 | PC.NURSE ---
Report to the Outpatient Waiting Room, entrance under the green pavilion located off [facility], at time __06:00am__on date _01/11/24 . Planned Procedure Time: ___07:30am .? Time changes happen often and if your time is changed the preop area will call you the afternoon before. - You and your visitor will be asked to self-screen and do not enter if you have any COVID symptoms. Please call surgeon if you need to reschedule. - A mask is optional within the hospital at this time. Patients may have clear liquids (water, carbonated beverages, clear teas, apple juice) until 3 hours prior to surgery with a maximum of 20 ounces. - No food from midnight until time of surgery and no smoking Take only the following medications with a SIP of water on the morning of surgery: Amlodipine and Coreg DO NOT STOP ANY OF YOUR OTHER PRESCRIPTION MEDICATIONS PRIOR TO SURGERY EXCEPT THE FOLLOWING Medications to discontinue per physician Stop your Aspirin [address] Lu Date to take last dose 01/03/24 Hold all vitamins , supplements, herbs and probiotics for 3 days prior to surgery per Anesthesia. Date to take last dose is - 01/07/24 Please no make-up, nail [place], hairspray, perfume, deodorant, or body powder the day of surgery.? No jewelry (including any body piercings) or valuables the day of surgery, leave them at home.? Please take a shower or bath the night before, or the morning of, surgery with an antibacterial soap.? Wear comfortable, loose fitting clothing.? . - Jewelry must be removed prior to entering the operating room.? Rings and piercings that are not removed may be cut off. - The hospital will not accept responsibility for valuables.? - Please leave all valuables, including medications, at home the day of surgery. If you are going home after surgery, a licensed spotter driver must drive you home.? - NO public transportation without another adult if you receive anesthesia. - We recommend that an adult stay with you for 24 hours following discharge. - We also recommend that you do not drive, make important decision, drink alcoholic beverages, or take any drugs that were not prescribed by your health care provider for at least 24 hours after your discharge time. Follow any additional instructions given to you from your surgeon. Telephone instructions given to _patient and asked if any additional questions and then verbalized understanding. Patient advised to call surgeon office or pre surgery nurse liaison [phone] if any additional questions.
--- NOTE | 2024-01-10 14:45 | WPDANESEPPF ---
Anes - Initial Pre Proc Eval Procedure: Operation Date: 01/11/24 07:30 Proposed Procedures p Right Custom Total Knee Arthroplasty - Doug Lu MD Date/Time: 01/10/24 14:45 Surgeon: Doug Lu MD Pre Op Diagnosis: Prim O A Rt Knee Patient Data Age: 73 Gender: F Height: 1.68 m Weight: 79.3 kg Last Vital Signs Temp 97.8 F 12/15/23 08:57 Pulse 70 12/15/23 08:57 Resp 16 12/15/23 08:57 BP 151/61 H 12/15/23 08:57 O2 Del Method Room Air 12/15/23 08:57 Allergies Allergy/AdvReac Type Severity Reaction Status Date / Time codeine Allergy Intermediate Anxiety Verified 12/15/23 09:51 shellfish derived Allergy Intermediate Hives Verified 12/15/23 09:51 Home Medications Medication Instructions Recorded Confirmed Type aspirin 81 mg chewable tablet 81 mg PO DAILY 05/22/19 12/15/23 History yshgkuedlbvz-Zd-lxnd-minerals 1 tablet PO DAILY 05/22/19 12/15/23 History vitamins A,C,U-xmdv-xqcrxz 2,148 1 tablet PO BID 03/04/21 12/15/23 History mcg-113 mg-45 mg-17.4 mg tablet (PreserVision AREDS) omega 2-sou-eib-fish oil 1,000 mg 2 cap PO BID 09/25/22 12/15/23 History (120 mg-180 mg) capsule (Fish Oil) amlodipine 5 mg tablet See Rx Instructions .Route 06/07/23 12/15/23 Rx .COMPLEX #90 tabs pravastatin 40 mg tablet See Rx Instructions .Route 06/07/23 12/15/23 Rx .COMPLEX #90 tabs metformin 500 mg tablet 500 mg PO BID #180 tabs 10/06/23 12/15/23 Rx carvedilol 12.5 mg tablet 12.5 mg PO BID #180 tabs 10/21/23 12/15/23 Rx lisinopril 10 mg tablet 10 mg PO BID #90 tabs 11/08/23 12/15/23 Rx montelukast 10 mg tablet 10 mg PO DAILY #90 tabs 11/25/23 12/15/23 Rx (Singulair) acetaminophen 650 mg 1,300 mg PO BID PRN Pain 12/15/23 12/15/23 History tablet,extended release Patient hx anesthesia problems: none Family hx anesthesia problems: none Results Review: All pre-operative results and documents have been reviewed as part of the pre-operative evaluation. [facility] Past Medical History Medical History Arthralgia of both knees Arthritis of right knee Atopic dermatitis Powers's cyst of knee Bilateral tinnitus Emphysema lung Former cigarette smoker Heart disease HLD (hyperlipidemia) Hypertension Left bundle branch block Macular degeneration Surgical History Surgical History History of tubal ligation Family History Family History Sibling Hypertension Family history of malignant neoplasm Grandparent Cerebrovascular accident Acute myocardial infarction Family history of malignant neoplasm Mother Cerebrovascular accident Father Acute myocardial infarction Social History Social History Social History: caffeine /soda Smoking packs per day: 1 Smoking cigarettes per day: 20.0 Years smoked: 51 Smoking pack-years: 51.00 Smoking status: Former smoker Tobacco type: cigarettes Second hand tobacco smoke exposure: No Smoking end date: 01/30/13 Alcohol intake: current Drinks per week: 3 Alcohol use details: beer Substance use: never Substance use type: does not use Do You Feel Safe in your Home?: Yes Lack of Transportation: No Lack of Food: Never True Current Housing: I Have Housing Concerned About Future Housing: No Difficulty Paying Gas/Electric Bills: No Difficulty Paying for Meds: No Currently Unemployed: No Education: High School Diploma/GED Difficulty w/ Childcare or Family Care: No Living arrangements: with family Additional living arrangements comments: Occupation/Education: retired Gender identity (if verbalized by the patient): Female Sexual Orientation (if Verbalized by the Patient): Straight or Heterosexual Spiritual care concerns: No Agree to blood pro
[2024-01-11] VITALS (10 sets, daily range): BP systolic 130–164; BP diastolic 54–86; PULSE 64–85; RESP 14–20; TEMP 36.3–36.7; O2SAT 92–100
--- NOTE | ~2024-01-11 | XR_ITS ---
[id number] Ordering provider: Doug Lu MD History: . POST-OP, RIGHT CUSTOM TKA . Comparison: None. FINDINGS: BONES: No acute fracture or dislocation. JOINT SPACES: Total knee arthroplasty. SOFT TISSUES: Postoperative changes in the subcutaneous tissues. IMPRESSION: No acute osseous abnormality right knee. Total knee arthroplasty with postoperative changes seen Reviewed, dictated and finalized at location A.
[2024-01-11] MEDS: LACTATED RINGERS 1,000 ML 30 ML IV CONT ×2 (06:30→09:08)
[2024-01-11] MEDS: ACETAMINOPHEN 500 MG TABLET 1000 MG PO (07:00)
[2024-01-11 07:18] LABS: Glucose Point of Care 126 mg/dl (65-105)
--- NOTE | 2024-01-11 07:19 | WPDHPUPDATE1 ---
History and Physical Update Update Date/Time: 01/11/24 07:19 History and Physical has been reviewed, including an updated exam of the patient. There are NO changes in the patient's condition. Risks, benefits, and alternatives have been discussed and questions answered. Patient agrees to proceed with procedure.
[2024-01-11] MEDS: TRANEXAMIC ACID 1,000MG/ISO100 1,000 MG/100 ML BAG 200 MG IVPB (07:30)
[2024-01-11] MEDS: ceFAZolin 2 GM/D5W 50 ML 2 GM/50 ML BAG IVPB (07:30)
[2024-01-11] MEDS: SODIUM CHLORIDE 0.9% IV 37.7 ML, MORPHINE SULFATE INJ (*CRX) 2 MG, ROPivacaine HCL 1% 2... INFILTRATE (07:52)
[2024-01-11] MEDS: TRANEXAMIC ACID 1,000 MG/10 ML AMPUL 1000 MG IV PUSH (08:49)
--- NOTE | 2024-01-11 08:55 | W.PM.PROC2 ---
Procedure Note - Detailed Date of Procedure 01/11/24 Pre-op Diagnosis Right knee degenerative arthritis. Post-op Diagnosis Same Procedure Performed Total knee arthroplasty, right. Surgeon Doug Lu MD Rail Operations Controller Samantha Fleming PA-C Anesthesia General and Regional (Subsartorial block.) Findings Custom TKA optimum fit. No releases. Satisfactory bone quality. The patella was normal in appearance. Description of Procedure Preoperative antibiotics were given. The limb was prepped and draped in the usual sterile fashion with a well-padded tourniquet high on the thigh. The limb was exsanguinated and the tourniquet inflated to 300 mmHg. A longitudinal incision was created just medial to the patella. A trivector approach to the knee was performed. Arthrotomy was taken down through the joint capsule. No significant releases were initially taken. The femur was exposed and the F1 jig was applied. The coring tool was used to remove the cartilage for the F2 jig to sit flush with the bone. The jig was pinned and the distal cut carefully taken. Caliper measurements confirmed appropriate bony resections according to the preoperative templated plan. The F4 cutting jig for the femur was applied, at the standard rotation. The AP and anterior chamfer cuts were taken. The F5 jig was applied and the posterior chamfer cuts were taken. The tibia was prepared using the T1 jig, after removing cartilage for the jig contact points. Proper alignment was checked with the alignment medina. The tibia was cut using the T1u guide. Gap balancing was performed. Gap measurements were taken and the knee was trialed. Excellent alignment and soft tissue balancing was confirmed. The posterior cruciate ligament was recessed along the proximal tibia. The patella was denervated. Meniscal remnants were removed. The trial components were assembled. Excellent range of motion and proper soft tissue balancing were confirmed throughout the full range of motion. Patellar tracking was excellent. The knee was copiously irrigated periodically throughout the procedure. The real implants were cemented into position. Excess cement was carefully removed. The wound was closed in layers with interrupted #1 Vicryl suture, 2-0 strata fix suture, 0 strata fix suture, 2-0 strata fix suture. Steri-Strips placed on the skin with the knee flexed. Sterile bulky dressing applied. The patient was brought to the recovery room in stable condition. There were no complications. Physician quality assurance assistant, Samantha Fleming PA-C, required for surgery; including patient positioning, draping, tissue retraction, maintaining instrument position, cement removal, wound closure, and dressing placement. Implants Conformis Custom total knee arthroplasty. Cemented. Cruciate retaining. 7B insert. Estimated Blood Loss 50 Drains No Complications No immediate complications Condition Stable Disposition PACU [facility] Billing Surgery - Charge Forward: Surgery Billing
[2024-01-11 09:16] LABS: Glucose Point of Care 153 mg/dl (65-105)
[2024-01-11] MEDS: oxyCODONE HCL (*CRX) 5 MG TAB IR PO (10:51)
== END 2024-01-11 11:45 | disposition home or self-care (01) ==
PROVIDERS: PCP Family Medicine; Visit Provider Orthopaedic Surgery
PROC: (CPT 27447; principal; 2024-01-11 07:30)
DX: M17.11 Unilateral primary osteoarthritis, right knee (principal); E78.5 Hyperlipidemia, unspecified; I11.9 Hypertensive heart disease without heart failure; J43.9 Emphysema, unspecified; H35.30 Unspecified macular degeneration; I44.7 Left bundle-branch block, unspecified; Z79.82 Long term (current) use of aspirin; Z79.84 Long term (current) use of oral hypoglycemic drugs; Z98.890 Other specified postprocedural states; Z98.51 Tubal ligation status; Z87.891 Personal history of nicotine dependence; Z80.9 Family history of malignant neoplasm, unspecified; Z82.49 Family history of ischemic heart disease and other diseases of the circulatory system
CPT/HCPCS: 27447; 36415; 73560; 80048; 80307; 82040; 82948; 83036; 85025; 86850; 86900; 86901; 87641; 97110; 97161; 97165; 97535; A9270; C1713; C1776; J0171; J0690; J1100; J1885; J2003; J2270; J2405; J2704; J2795; J3010; J7120

== ENCOUNTER 2024-02-10 15:14 | Outpatient (CLI) | payer OTHER, SELFPAY ==
--- NOTE | ~2024-02-10 | MM_ITS ---
EXAMINATION: MM screening shayne BI w eddie HISTORY: Screening mammogram TECHNIQUE: Craniocaudal and mediolateral oblique 3-D tomosynthesis images were obtained and synthetic 2-D images were generated. CAD analysis was submitted and interpreted. COMPARISON: 05/14/2022, 08/24/2020 BREAST PARENCHYMAL COMPOSITION:Not Dense. There are scattered areas of fibroglandular density. FINDINGS: No suspicious mass, calcification, or architectural distortion are identified in either demetri ast to suggest malignancy. There has been no suspicious interval change. IMPRESSION: No mammographic evidence of malignancy. Recommend routine screening mammography in one year. BI-RADS Category 1: Negative Reviewed, dictated and finalized at location . 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
== END 2024-02-10 15:15 | disposition home or self-care (01) ==
PROVIDERS: PCP Family Medicine; Visit Provider Nurse Practitioner
DX: Z12.31 Encounter for screening mammogram for malignant neoplasm of breast (principal)
CPT/HCPCS: 77063; 77067

== ENCOUNTER 2024-02-18 14:30 | Outpatient (RCR) | payer OTHER, SELFPAY ==
--- NOTE | 2024-01-24 15:33 | OPREHPOC ---
Outpatient Therapy Plan of Care This is a Multidisciplinary Plan of Care that may contain components documented by all disciplines (PT, OT, and ST.) PT Problem 1 PT Problem #1 Knowledge Deficit PT Goal 1 Goal / Goal Update *indep with HEP Target Visit 8 PT Problem 2 PT Problem #2 Pain PT Goal 1 Goal / Goal Update 1* pt report pain rating of 3/10 at worst with increased activity level 2*self assessment LE functional scalre rating of 24% limitation in activity level 3* pt report activity tolerance with standing/ walking of 30 minutes 4* pt report sleeping 6 hours/time Target Visit 8 PT Problem 3 PT Problem #3 Impaired Range of Motion PT Goal 1 Goal / Goal Update improve R knee active ROM, to improve ability on stairs, transfers in sitting; active motion 1* extension 0' 2* flexion 120' Target Visit 8 PT Problem 4 PT Problem #4 Impaired Functional Mobility PT Goal 1 Goal / Goal Update increase strength of R LE to improve mobility and activity tolerance 1* pt perform R LE mat strengthening exercises x 20 reps 2* single leg standing R x 10 seconds 3* 2 minute walking test distance 500' 4* pt up/down 12 steps with 1 hand railing, modified indep Target Visit 8
--- NOTE | 2024-01-24 15:33 | PTOPEVAL1 ---
Assessment and note entered by Carissa Agarwal, PT Evaluation Information Assessment Status Evaluation ICD-10 Condition Codes (PT) R26.9,Weakness R53.1,Z47.89,Z47.1 Onset 01-11-24 Subjective Information used the wheeled walker few days, then been using the large base quad cane; doing well walking around her home; have been doing the sitting exercises at home, not always do the lying down ones; went down to the basement 1x since surgery- have rails on both sides; have walk in shower and did good with it; Activity: no assistive device; indep bathing, dressing, home activity; play pool Reported Pain Level Pain Score Self Report Additional Pain Score Comments pain range in the past few days: 0-4/10 increase pain: standing/walking 10-15 minutes decrease pain: ibuprofen, ice 20 min at time; change positions no longer taking prescription pain meds; sleeping tolerance 4 hours at time; tends to sleep on her sides--instruct on use of pillow between knees for position of knee/hip Assessment PT Clinical Summary Radha is s/p R TKR. Prior to surgery, she was active and indep. LE Functional scale with self assessment of 34% limitation. With the evaluation: she is ambulating with the large based quad cane; on 4 steps is using alternating step pattern, with LBQC and one hand railing; mat exercises 15 reps R LE; 2 minute walking test distance with LBQC, distance of 420'; with circumferential measurement of knee, compared to L 1 to 2 cm larger with 3 measurements. Skilled PT services are indicated for therapeutic exercises to increase LE strength and knee ROM; modalities for pain control and education for gait training and progression of HEP. ROM of R knee: active in sitting (-10') to 115' and supine knee extension (-5'); Plan of Care Interventions Electrical Stimulation,Gait Training,Hot Pack/Cold Pack,Manual Therapy,Neuro Re-education,Patient/ Caregiver Education,Therapeutic Activities, Therapeutic Exercise PT Services Indicated Yes Treatment Frequency and 2x/wk for 8 visits Duration These treatments will address the objective and functional deficits as defined above. The patient will be advanced safely and appropriately in order for the patient to progress towards his/her prior level of function. Additional exercises will be introduced and as well as a comprehensive home exercise program upon discharge, if needed, ?to ensure carryover of functional gains achieved in the clinic. This treatment plan has been reviewed and agreement upon by the patient.
--- NOTE | 2024-02-18 15:06 | PTOPDC ---
Assessment and note entered by Carissa Agarwal, PT Discharge Report Assessment Status Discharge ICD-10 Condition Codes (PT) R26.9,Weakness R53.1,Z47.89,Z47.1 Onset 01-11-24 Subjective Information doing all of the exercises at home without any trouble; doing everything at home--laundry, driving, cooking, cleaning; do not need any more therapy. Reported Pain Level Pain Score Self Report Additional Pain Score Comments pain in the posterior knee up to 5/10-use heat and it helps; tenderness with palpation over medial- distal hamstring; able to sleep 7 and 1/2 hours; up/walking and moving as much as want to--not have to rest or stop; Assessment PT Clinical Summary Radha has received 8 PT sessions. She has made excellent progress. Compared to the initial evaluation: she has improved in all areas: good strength of R knee and hip; 2 minute walking test distance of 525' without assistive device and good gait gait pattern; on 12 stairs, use of one hand railing for alternate step pattern; education completed for HEP. active ROM of R knee (-3') to 130'. Indep with HEP; she reports doing all of her home activities. The goals were achieved, except knee extension 0' Discharge PT services. She is to continue with her HEP. Plan of Care PT Services Indicated No
== END 2024-03-03 11:23 | disposition home or self-care (01) ==
LOC: ANHPT 14:30
PROVIDERS: PCP Family Medicine; Visit Provider Physician Assistant Surgical
DX: Z47.1 Aftercare following joint replacement surgery (principal); Z96.651 Presence of right artificial knee joint
CPT/HCPCS: 97110; 97116; 97140; 97161; 97530

== ENCOUNTER 2024-02-29 14:05 | Outpatient (CLI) | payer OTHER, SELFPAY ==
--- NOTE | ~2024-02-29 | XR_ITS ---
Right Knee Technique: AP, lateral, and sunrise views were obtained. Clinical History: Arthroplasty Findings: No fracture or dislocation is seen. Right knee arthroplasty in place. No hardware complicat ion. Soft tissues are unremarkable. No joint effusion is seen. Impression: No acute abnormality. Right knee arthroplasty in place. Reviewed, dictated and finalized at location . [facility] Impression: No acute abnormality. Right knee arthroplasty in place.
== END 2024-02-29 14:06 | disposition home or self-care (01) ==
PROVIDERS: PCP Family Medicine; Visit Provider Orthopaedic Surgery
DX: Z96.651 Presence of right artificial knee joint (principal)
CPT/HCPCS: 73562

== ENCOUNTER 2024-03-06 15:17 | Outpatient (CLI) | payer OTHER, SELFPAY ==
[2024-03-06 20:15] LABS: Alanine Aminotransferase 13 U/L (6-35); Albumin Level 4.5 g/dL (3.5-5.1); Alkaline Phosphatase 84 U/L (38-126); Anion Gap 7 mmol/L (4-12); Aspartate Amino Transferase 34 U/L (14-36); Bilirubin,Total 0.3 mg/dL (0.2-1.3); Blood Urea Nitrogen 17 mg/dL (7-17); Carbon Dioxide 27 mmol/L (22-30); Chloride 103 mmol/L (98-107); Estimated Glomerular Filt Rate 54; Glucose 150 mg/dL (65-110); Potassium 4.6 mmol/L (3.4-5.0); Sodium 137 mmol/L (137-145)
[2024-03-06 21:01] LABS: Vitamin D 25 Hydroxy 36.8 ng/mL
[2024-03-06 21:58] LABS: Hemoglobin A1C 6.1 % (<5.7)
== END 2024-03-06 15:18 | disposition home or self-care (01) ==
LOC: ANHGOSHLAB 15:18
PROVIDERS: PCP Family Medicine; Visit Provider Family Medicine
DX: E55.9 Vitamin D deficiency, unspecified (principal); I10 Essential (primary) hypertension; E11.9 Type 2 diabetes mellitus without complications
CPT/HCPCS: 36415; 80053; 82306; 83036

== ENCOUNTER 2024-03-30 12:54 | Outpatient (CLI) | payer OTHER, SELFPAY ==
--- NOTE | ~2024-03-30 | CT_ITS ---
CT Scan of the Chest without Contrast: Clinical Indication: Lung cancer screening, nicotine dependence Technique: Contiguous sections were acquired throughout the chest without intravenous contrast. Dose reduction technique was used on this scan by utilizing automated exposure control and iterative recon struction technique. The dose-length product (DLP) was 94.44 mGy-cm. COMPARISON: 06/05/2021 Findings: There is no evidence of any significant mediastinal, hilar or axillary lymphadenopathy. Coronary delia ry calcifications are present. There is no evidence of pleural or pericardial effusion. There is mild emphysema with minimal peripheral chronic interstitial changes. Stable subcentimeter pl eural-based nodule left lower lobe (axial image 83). Stable pleural-based nodule superior segment rig ht lower lobe (axial image 66). There is chronic discoid scarring or atelectasis at the right lung ba se. Images through the upper abdomen reveal no abnormalities. Impression: Lung RADS 2: Benign appearance. 12 month follow-up screening CT advised. Reviewed, dictated and finalized at [facility]. 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 12 month follow-up screening CT advised.
== END 2024-03-30 12:55 | disposition home or self-care (01) ==
PROVIDERS: PCP Family Medicine; Visit Provider Family Medicine
DX: Z12.2 Encounter for screening for malignant neoplasm of respiratory organs (principal); Z87.891 Personal history of nicotine dependence
CPT/HCPCS: 71271

== ENCOUNTER 2024-04-24 13:52 | Outpatient (CLI) | payer OTHER, SELFPAY ==
--- NOTE | ~2024-04-24 | XR_ITS ---
XR knee RT 3V 04/24/2024 14:11 Indication: Right knee pain Procedure: 3 views right knee Comparison: 02/29/2024 Findings: There is a right total knee arthroplasty which appears to be well seated. No fracture or tr aumatic malalignment. No significant joint effusion. No foreign bodies. Impression: 1: No acute bone or joint abnormality. Reviewed, dictated and finalized at location [facility]. 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
== END 2024-04-24 13:53 | disposition home or self-care (01) ==
PROVIDERS: PCP Family Medicine; Visit Provider Orthopaedic Surgery
DX: Z96.651 Presence of right artificial knee joint (principal)
CPT/HCPCS: 73562

== ENCOUNTER 2024-09-07 10:41 | Outpatient (CLI) | payer OTHER, SELFPAY ==
[2024-09-07 11:08] LABS: Basophils Absolute Auto 0.1 K/mm3 (0.0-0.1); Basophils Percent Auto 0.8 % (0.2-1.2); Eosinophils Absolute Auto 0.4 K/mm3 (0-0.3); Eosinophils Percent Auto 5.2 % (0-4.4); Hematocrit 35.9 % (37.0-47.0); Hemoglobin 11.5 g/dL (12.0-15.0); Immature Granulocyte Absolute 0.02 K/mm3 (0.00-0.031); Immature Granulocyte Percent A 0.3 % (0-0.5); Lymphocytes Absolute Auto 2.61 K/mm3 (0.9-3.2); Lymphocytes Percent Auto 35.9 % (18.3-44.2); Mean Corpuscular Hemoglobin 30.1 pg (26-34); Mean Platelet Volume 10.3 fl (7.4-10.4); Monocytes Absolute Auto 0.7 K/mm3 (0.1-0.6); Monocytes Percent Auto 9.8 % (2.6-8.5); Neutrophils Absolute Auto 3.5 K/mm3 (1.3-6.7); Platelet Count Result 204 k/mm3 (150-375); Red Blood Count 3.82 M/mm3 (4.2-5.4); Red Cell Distribution Width 12.4 % (11.5-14.5); White Blood Count 7.3 K/mm3 (4.5-10.0)
[2024-09-07 11:21] LABS: Alanine Aminotransferase 18 U/L (6-35); Albumin Level 4.3 g/dL (3.5-5.1); Alkaline Phosphatase 66 U/L (38-126); Anion Gap 9 mmol/L (4-12); Aspartate Amino Transferase 23 U/L (14-36); Bilirubin,Total 0.4 mg/dL (0.2-1.3); Blood Urea Nitrogen 19 mg/dL (7-17); Calcium 9.2 mg/dL (8.4-10.2); Carbon Dioxide 25 mmol/L (22-30); Chloride 105 mmol/L (98-107); Cholesterol 182 mg/dL (0-200); Estimated Glomerular Filt Rate 55; Glucose 132 mg/dL (65-110); HDL Direct 59 mg/dL; Potassium 4.1 mmol/L (3.4-5.0); Sodium 139 mmol/L (137-145); Total Protein 6.9 g/dL (6.3-8.2); Triglycerides 166 mg/dL (<150)
[2024-09-07 11:36] LABS: Hemoglobin A1C 5.8 % (<5.7)
[2024-09-07 11:38] LABS: LDL Cholesterol Direct 81 mg/dL
[2024-09-07 16:04] LABS: Creatinine Urine 41.3 mg/dL
[2024-09-07 16:09] LABS: MALB Creatinine Ratio 21.8 mg/g (0-30)
== END 2024-09-07 10:42 | disposition home or self-care (01) ==
LOC: ANHLAB 10:42
PROVIDERS: PCP Family Medicine; Visit Provider Family Medicine
DX: E53.8 Deficiency of other specified B group vitamins (principal); I10 Essential (primary) hypertension; E78.5 Hyperlipidemia, unspecified; E11.9 Type 2 diabetes mellitus without complications; E55.9 Vitamin D deficiency, unspecified
CPT/HCPCS: 36415; 80053; 80061; 82043; 82306; 82607; 83036; 84443; 85025